=== PATIENT | male | born 1940 | race Caucasian/White ===

== ENCOUNTER 2016-08-23 00:52 | Emergency (ER) | payer MEDICARE ==
--- NOTE | 2016-08-26 19:49 | ER ---
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 PHYSICAL EXAMINATION: VITAL SIGNS: In the ER, the patient had temperature of 96.2, O2 saturation was in low to mid 90s, respiratory rate was 18, heart rate was 86, and blood pressure was 144/86. GENERAL: The patient was mildly lethargic, but alert and oriented to person, place, and time. HEAD and NECK: Positive for oropharynx was erythematous without exudate. LUNGS: The patient had bilateral wheezing without any crackles. The patient also had prolonged expiration too. HEART: Normal heart sounds, S1-S2. ABDOMEN: Soft. EXTREMITIES: No extremity swelling or pain. The rest of physical exam is noncontributory except for right upper and right lower extremity weakness, which is chronic. The patient's EKG was positive for AFib with a rate of 66. Troponin I was negative. The patient was negative for influenza A and B. BNP was 682 and WBC was 6.3, with hemoglobin of 13.2. The patient had creatinine of 1.7, after reviewing the chart, his creatinine has always been in the range of 1.1 to 1.6. Chest x-ray did not show any infiltration. The patient received breathing treatment and Decadron IM, wheezing was resolved and the patient was re-examined, he had no crackles. The patient had stable vitals and states he feels way better. The patient was discharged to home with return precautions and follow up with the primary doctor as needed. Raimundo Bryson MD/ danilo JOB #: [id number] CC: Raimundo Bryson MD, Attending Physician Haider Breen MD, Family Physician
== END 2016-08-23 03:59 | disposition home or self-care (01) ==
LOC: ER 00:52
DX: J44.9 Chronic obstructive pulmonary disease, unspecified (principal); J06.9 Acute upper respiratory infection, unspecified; Z86.73 Personal history of transient ischemic attack (TIA), and cerebral infarction without residual deficits; Z95.0 Presence of cardiac pacemaker; Z79.01 Long term (current) use of anticoagulants; Z79.899 Other long term (current) drug therapy